=== PATIENT | female | born 1955 | race Caucasian/White ===

== ENCOUNTER 2022-07-05 12:43 | Outpatient (CLI) | payer MEDICARE, OTHER | END 2022-07-05 23:59 | disposition critical access hospital (66) | LOC: EMS 12:43 | DX: M25.511 Pain in right shoulder (principal); M54.2 Cervicalgia; M62.838 Other muscle spasm; W10.9XXA Fall (on) (from) unspecified stairs and steps, initial encounter; Y92.008 Other place in unspecified non-institutional (private) residence as the place of occurrence of the external cause | CPT/HCPCS: A0425; A0427 ==

== ENCOUNTER 2022-07-05 13:33 | Emergency (ER) | payer MEDICARE ==
[2022-07-05] MEDS ORDERED: HYDROmorphone 1 MG/ML CARPUJECT IVP STA (14:17)
--- NOTE | 2022-07-05 14:29 | ED Physician Documentation ---
History of Present Illness - Stated complaint Stated Complaint: RT SHOULDER INJ - Chief complaint Chief Complaint: Trauma Ext - History obtained from History obtained from: Patient, EMS - History of Present Illness Timing: Today Pain level max: 9 Pain level now: 9 - Additonal information Additional information: 66-year-old female presents to the emergency department with right shoulder pain after ground-level fall while carrying wood into the house today. She fell on the porch. No head, neck, back pain. No loss of consciousness. No vomiting. No other injuries. Not on blood thinners. Received fentanyl with EMS. Patient is right-handed. Review of Systems Constitutional: denies: Fever, Chills Musculoskeletal: denies: Neck pain, Back pain Neurologic: denies: Headache, Head injury, LOC PD PAST MEDICAL HISTORY - Past Medical History Past Medical History: No - Past Surgical History Past Surgical History: No - Present Medications Home Medications: Ambulatory Orders Medication Instructions Recorded Confirmed Meloxicam [Mobic] 7.5 mg PO BID PRN #20 tablet 07/05/22 oxyCODONE [Roxicodone] 5 - 10 mg PO Q6H PRN #20 tablet 07/05/22 MDD 6 - Allergies Allergies/Adverse Reactions: Allergies Allergy/AdvReac Type Severity Reaction Status Date / Time No Known Drug Allergies Allergy Verified 07/05/22 13:36 - Living Situation Living Arrangement: reports: At home - Social History Does the pt smoke?: No Does the pt have substance abuse?: No - Family History Family history: reports: Non contributory PD ED PE NORMAL - Vitals Vital signs reviewed: Yes - General General: Alert and oriented X 3, No acute distress - HEENT HEENT: Atraumatic, PERRL, Moist mucous membranes, Pharynx benign - Neck Neck: Supple, no meningeal sign, No bony TTP - Cardiac Cardiac: RRR, Strong equal pulses - Respiratory Respiratory: No respiratory distress, Clear bilaterally - Abdomen Abdomen: Soft, Non tender, Non distended - Derm Derm: Warm and dry - Extremities Extremities: Other (Right arm in a sling. Tender to palpation over the glenohumeral joint. No gross deformity. Neurovascular intact. No tenderness over the elbow, forearm, wrist. 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, No motor deficit, No sensory deficit, Normal speech - Psych Psych: Normal mood, Normal affect Results - Vitals Vitals: Vital Signs - 24 hr 07/05/22 07/05/22 07/05/22 13:36 13:41 15:27 Temperature 36.5 C 36.8 C 36.8 C Heart Rate 74 74 72 Respiratory 16 16 16 Rate Blood Pressure 194/90 H 194/90 H 140/90 H O2 Saturation 100 100 100 Oxygen O2 Source Room air - Rads (name of study) Right shoulder x-ray Radiology: Final report received, See rad report PD Medical Decision Making - ED course Complexity details: reviewed results, re-evaluated patient, considered differential, d/w patient ED course: 66-year-old female presents to the emergency department after ground-level fall. No head or neck pain. She has a comminuted, displaced intra-articular right humeral head fracture. She is placed in a sling. Given pain medication. Pain well controlled. Neurovascular intact. Patient will follow-up with orthopedics for further care. Patient counseled regarding signs and symptoms for which I believe and urgent re-evaluation would be necessary. Patient with good understanding of and agreement to plan and is comfortable going home at this time This document was made in part using voice recognition software. While efforts are made to proofread this document, sound alike and grammatical errors may occur. IMPRESSION: Comminuted and displaced intra-articular right humeral head fractures with associated loose body inferior to the glenoid. Departure - Departure Disposition: 01 Home, Self Care Clinical Impression: Humeral head fracture Qualifiers: Encounter type: initial encounter Fracture type: closed Laterality: right Qualified Code(s): S42.291A - Other displaced fracture of upper end of right humerus, initial encounter for closed fracture Condition: Good Instructions: ED Fx Upper Ext Follow-Up: Orthopedic Care [Provider Group] - Within 1 week Prescriptions: Meloxicam [Mobic] 7.5 mg PO BID PRN #20 tablet PRN Reason: Pain oxyCODONE [Roxicodone] 5 - 10 mg PO Q6H PRN #20 tablet MDD 6 PRN Reason: pain Comments: Your prescriptions were sent to the [facility] pharmacy. Use the sling until you are released by orthopedics. Please return if you worsen. You have a right humeral head fracture on x-ray today. I am prescribing a short course of narcotic pain medication for you. These are potentially dangerous and addictive medications that should be used carefully. These medications may constipate you. Take an [id number]-qtc-[id number] stool softener (d ocusate) twice daily with plenty of water while taking these medications. If you go 24 hours without a bowel movement, take zjdi-rro-mduywea miralax, per package instructions. Do not drink or drive while taking these medications. If you received narcotic or sedating medications while in the emergency department, do not drive for 24 hours. Store this medication in a safe, secure place and out of reach of children. It is a violation of federal law to give or sell this medication to another person or to use in a manner other than prescribed. The ED will not refill narcotic prescriptions, including prescriptions lost or stolen. To dispose of unwanted medications: 1. [facility] at [address] in [place] has a medication drop box. They accept prescription medications (in pill form) Tuesday through Tuesday 9:00 a.m. to 5:00 p.m. 2. The [facility] accepts prescription medications (in pill form only) for disposal year round. Call for more information. 3. Contact the [facility] for the next [facility] sponsored prescription drug collection event. , [phone], or [phone]; Discharge Date/Time: 07/05/22 15:27
--- NOTE | 2022-07-05 14:31 | XRAY Report ---
PROCEDURE: Shoulder 3 View RT INDICATIONS: Trauma, fall, shoulder pain shoulder pain TECHNIQUE: 3 views of the shoulder were acquired. COMPARISON: None. FINDINGS: Comminuted and displaced intra-articular right humeral head fractures. Approximately 5 mm x 2 mm loos e body projects inferior to the glenoid. Moderate effusion. IMPRESSION: Comminuted and displaced intra-articular right humeral head fractures with associated lo ose body inferior to the glenoid. Reviewed by: Stephane Mcleod MD on 07/05/2022 2:30 PM PST Approved by: Stephane Mcleod MD on 07/05/2022 2:30 PM PST Station ID: [id number]
[2022-07-05] MEDS ORDERED: oxyCODONE 5 MG TABLET PO STA (14:58)
[2022-07-05 15:28] VITALS: BP 140/90
== END 2022-07-05 15:27 | disposition home or self-care (01) ==
LOC: ED 13:33
DX: S42.211A Unspecified displaced fracture of surgical neck of right humerus, initial encounter for closed fracture (principal); W18.30XA Fall on same level, unspecified, initial encounter; Y93.89 Activity, other specified; Y92.009 Unspecified place in unspecified non-institutional (private) residence as the place of occurrence of the external cause
CPT/HCPCS: 73030; 96374; 99283; A9270; J1170

== ENCOUNTER 2022-07-12 14:10 | Outpatient (CLI) | payer MEDICARE, OTHER ==
--- NOTE | 2022-07-12 12:53 | XRAY Report ---
PROCEDURE: Shoulder 3 View RT INDICATIONS: RIGHT SHOULDER FRACTURE TECHNIQUE: 4 views of the shoulder were acquired. COMPARISON: 07/05/2022 FINDINGS: Unchanged comminuted and displaced intra-articular right humeral head fractures. IMPRESSION: No significant change. Reviewed by: Stephane Mcleod MD on 07/12/2022 12:52 PM PST Approved by: Stephane Mcleod MD on 07/12/2022 12:52 PM PST Station ID: [id number]
== END 2022-07-12 14:13 | disposition home or self-care (01) ==
LOC: DI.WOS 14:10
PROVIDERS: ATTEND Orthopaedic Surgery
DX: M25.511 Pain in right shoulder (principal)